=== PATIENT | female | born 1975 | race Caucasian/White ===

== ENCOUNTER 2023-03-08 17:14 | Emergency (ER) | payer BC ==
--- NOTE | 2023-03-08 17:25 | ERPHSYRPT ---
- History of Present Illness Time Seen by Provider: 03/08/23 17:25 Source: patient Exam Limitations: no limitations Physician History: This is a 47-year-old overweight white female patient Dr. Salgado who has had right knee surgery performed 15 years ago and presents with 2-week history of right knee pain that was worse this morning. Patient states that she was babying the knee over the last 2 weeks but this morning it was more swollen and had increased pain. Patient was walking her dogs and the dog pulled her to the ground and she landed directly on her anterior knee. There are no other pain complaints or areas that she injured. She has no shortness of breath and she has no chest pain. She has no abdominal pain. Method of Injury: fell Occurred: other (2 weeks ago) Quality: constant, aching Severity of Pain-Max: mild Severity of Pain-Current: mild (To moderate) Lower Extremities Pain: knee: right (The anterior with "swelling" behind the knee on the right side) Modifying Factors: Improves With: movement Associated Symptoms: other (Hurts to bear weight but can do so) Allergies/Adverse Reactions: bee venom protein (honey bee) Allergy (Verified 03/08/23 17:31) latex Allergy (Verified 03/08/23 17:31) Home Medications: Benazepril HCl 1 tab PO DAILY 03/08/23 [History] Gabapentin [Neurontin ] 1 tab PO TID PRN 03/08/23 [History] Travel Risk - International Travel Have you traveled outside of the country in past 3 weeks: No - Coronavirus Screening Are you exhibiting any of the following symptoms?: No Close contact with a COVID-19 positive Pt in past 14-21 Days: No - Review of Systems Constitutional: No Symptoms Eyes: Photophobia Ears, Nose, & Throat: No Symptoms Respiratory: No Symptoms Cardiac: No Symptoms Abdominal/Gastrointestinal: No Symptoms Genitourinary Symptoms: No Symptoms Musculoskeletal: Fall, Injury (Right anterior knee) Skin: No Symptoms Neurological: No Symptoms Psychological: No Symptoms Endocrine: No Symptoms Hematologic/Lymphatic: No Symptoms Immunological/Allergic: No Symptoms All Other Systems: Reviewed and Negative - Past Medical History Pertinent Past Medical History: Yes - Nursing Vital Signs Nursing Vital Signs: Initial Vital Signs Pulse Rate 84 03/08/23 17:33 Respiratory Rate 19 03/08/23 17:33 Blood Pressure 182/103 03/08/23 17:33 O2 Sat by Pulse Oximetry 100 03/08/23 17:33 Pain Scale Pain Intensity 10 - Physical Exam General Appearance: no apparent distress, alert, anxiety, obese Eyes, Ears, Nose, Throat Exam: normal ENT inspection, moist mucous membranes Neck Exam: normal inspection, non-tender, supple, full range of motion Cardiovascular/Respiratory Exam: chest non-tender, no respiratory distress Gastrointestinal/Abdominal Exam: non-tender Back Exam: normal inspection, normal range of motion, No CVA tenderness, No vertebral tenderness Hips Exam: bilateral: non-tender, normal inspection, normal range of motion, no evidence of injury Legs Exam: bilateral leg: non-tender, normal inspection, normal range of motion, no evidence of injury Knees Exam: right knee: joint effusion, soft tissue tenderness (Right popliteal fossa), left knee: non-tender, normal inspection, no evidence of injury, bilateral knee: normal range of motion Ankle Exam: bilateral ankle: non-tender, normal inspection, normal range of motion, no evidence of injury Foot Exam: bilateral foot: non-tender, normal inspection, normal range of motion, no evidence of injury Neuro/Tendon Exam: normal sensation, normal motor functions, normal tendon functions Mental Status Exam: alert, oriented x 3, cooperative Skin Exam: normal color, warm, dry SpO2 Interpretation: normal O2 Delivery: Room Air - Course Nursing assessment & vital signs reviewed: Yes Ordered Tests: Active Orders 24 hr Category Date Time Status KNEE (3 VIEWS) Stat Exams 03/08/23 17:28 Taken D-DIMER QUANTITATIVE Stat Lab 03/08/23 18:30 Completed Lab/Rad Data: Laboratory Results 03/08/23 Range/Units 18:30 D-Dimer < 0.19 (0.0-0.50) mg/L - Progress Progress Note: 03/08/23 18:06 X-ray right knee was interpreted by me. There is no evidence of any acute fracture or dislocation. Counseled pt/family regarding: lab results, diagnosis, need for follow-up, rad results Medical Desision Making - Discussion of managment Reviewed:: Test results Agreed on:: Treatment plan, need for follow-up - Diagnostic Testing Diagnostic test were ordered, analyzed, and reviewed by me: Yes Radiological Interpretation: Interpreted by me - Risk of complications The pt has a mod risk of morbidity or mortality based on: Need for prescription drug management - Departure Departure Disposition: Home Clinical Impression: Left knee pain, Fall with injury Condition: Stable Critical Care Time: No Referrals: SUSSY SALGADO [Primary Care Provider] - Follow up/PCP as directed Additional Instructions: Ice pack to area 3 times a day for the next 48 hours. If pain persists beyond 48 hours, follow-up at the [facility] orthopedic clinic. It is a walk-in clinic open Wednesday through Wednesday 8 AM to 10 AM. You do not need to have an appointment. Use ibuprofen 600 mg orally 3 times a day with food for 5 days. Take your other medications as prescribed. Prescriptions: Hydrocodone/APAP 5/325 [[place] 5/325 mg] 1 each PO Q8H PRN PRN #6 tablet MDD 3 PRN Reason: Pain
[2023-03-08 17:43] VITALS: O2SAT 100
[2023-03-08 19:44] VITALS: BP 174/97; PULSE 75
--- NOTE | 2023-03-09 08:37 | XRAY ---
Indication: Pain following fall 2 weeks ago. 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 No other bony, articular, or soft tissue abnormalities.
== END 2023-03-08 19:48 | disposition home or self-care (01) ==
LOC: ED 17:14
DX: M25.561 Pain in right knee (principal); W18.39XA Other fall on same level, initial encounter; Y93.K1 Activity, walking an animal; Z79.891 Long term (current) use of opiate analgesic; Z79.899 Other long term (current) drug therapy
CPT/HCPCS: 36415; 73562; 85379; 99283

== ENCOUNTER 2023-04-09 06:01 | Day surgery (SDC) | payer BC ==
[2023-04-09 06:25] VITALS: O2SAT 100
[2023-04-09] MEDS ORDERED: Lactated Ringers 1,000 ML IV SCH (06:30)
[2023-04-09] MEDS ORDERED: DIPRIVAN 200 MG/20 ML IV ONE ×2 (07:35→07:44)
[2023-04-09] MEDS ORDERED: Versed 2 MG/2 ML Injection ONE (07:35)
[2023-04-09] MEDS ORDERED: Xylocaine-Mpf 2% 5 Ml Vial ONE (07:36)
[2023-04-09 08:33] VITALS: PULSE 61
[2023-04-09 08:40] VITALS: BP 129/89
--- NOTE | 2023-04-09 09:02 | OP ---
SURGERY DATE/TIME: 04/09/2023 0735 PREOPERATIVE DIAGNOSIS: Rectal bleeding. POSTOPERATIVE DIAGNOSES: 1) Sigmoid diverticulosis. 2) Small sigmoid colon polyp. 3) A 2 cm rectal polyp. PROCEDURE: Colonoscopy with hot snare polypectomy and random cold forceps biopsy. SURGEON: Dr. Salgado. ANESTHESIA: Medications given by anesthesia department. HISTORY: The patient is a 47-year-old white female presenting now for concerns of rectal bleeding. The patient is felt the need to have endoscopic evaluation. She was appraised of the risks of the procedure including the risk of perforation, phlebitis, untoward reaction to medication, bleeding and missed lesions. The patient verbalized her understanding and desired to have the procedure performed. DESCRIPTION OF PROCEDURE: The patient was given the medications by the anesthesia department. She had continuous pulse oximetry, ECG monitoring, intermittent blood pressure monitoring during the examination. She was placed in the left lateral decubitus position. A digital rectal examination was performed and revealed normal anal sphincter tone and no masses. The flexible Olympus pediatric colonoscope was used to intubate the rectum. A view of the colon was developed sequentially to the cecum including a short distance in the terminal ileum. Upon insertion and withdrawal was noted a small polyp measuring approximately 0.7 cm in size in the sigmoid colon this is destroyed using passage of cold forceps biopsy. There was a larger polyp approximately 2 cm in size in the rectum that was removed using polypectomy snare retrieved for pathologic evaluation. There was also noted to be mild sigmoid diverticulosis. The scope was removed from the patient who tolerated the procedure well and was sent back to OP recovery in good condition. The prep was noted to be fair to good.
== END 2023-04-09 08:55 | disposition home or self-care (01) ==
LOC: SDC 06:01
PROVIDERS: ATTEND Family Medicine
DX: K57.30 Diverticulosis of large intestine without perforation or abscess without bleeding (principal); K62.5 Hemorrhage of anus and rectum; D12.7 Benign neoplasm of rectosigmoid junction; D12.5 Benign neoplasm of sigmoid colon
CPT/HCPCS: J2250; J2704